=== PATIENT | female | born 1985 | race Caucasian/White ===

== ENCOUNTER 2017-02-24 15:30 | Observation (INO) | payer OTHER ==
[~2017-02-24] VITALS: Ht 157.5 cm; Wt 65.3 kg
[2017-02-24] MEDS ORDERED: PNV1TABL54 PO (15:51)
[2017-02-24 17:43] VITALS: BP 109/62
[2017-02-24 21:45] LABS: BASOPHILS % (AUTO) 0.5 % (0.0-2.0); EOSINOPHILS % (AUTO) 1.6 % (1.0-6.0); HEMATOCRIT 26.6 % (36-46); HEMOGLOBIN 8.5 g/dL (12.0-16.0); LYMPHOCYTES # (AUTO) 2.8 K/uL (1.0-4.8); LYMPHOCYTES % (AUTO) 23.1 % (22.0-44.0); MEAN CORPUSCULAR HGB CONC 32.1 G/dL (31.0-37.0); MEAN CORPUSCULAR VOLUME 90 fL (80-100); MONOCYTES # (AUTO) 0.7 K/uL (0.1-1.0); NEUTROPHILS # (AUTO) 8.3 K/uL (1.8-7.7); NEUTROPHILS % (AUTO) 68.8 % (40.0-70.0); RED BLOOD CELL COUNT(AUTO) 2.94 MIL/uL (4.00-5.20); RED CELL DISTRIBUTION WIDTH 14.6 % (11.5-14.5); WHITE BLOOD COUNT (AUTO) 12.1 K/uL (4.5-11.0)
[2017-02-24 21:55] LABS: PROTHROMBIN TIME 10.2 SEC (9.4-11.6)
[2017-02-24] MEDS ORDERED: RINGERS SOLUTION,LACTATED 1,000 ML IV ONE (22:30)
[2017-02-24] MEDS ORDERED: RINGERS SOLUTION,LACTATED 1,000 ML IV SCH (23:00)
[2017-02-25] MEDS ORDERED: SOD FERRIC GLUC COMPLX/SUCROSE 125 MG in SODIUM CHLORIDE 0.9% 100 ML IV ONE (07:30)
[2017-02-25] MEDS ORDERED: FOLIC ACID 1 MG TABLET PO ONE (09:00)
== END 2017-02-25 10:10 | disposition home or self-care (01) ==
LOC: 4S 15:30
PROVIDERS: ADMIT Obstetrics & Gynecology; ATTEND Obstetrics & Gynecology
DX: O26.893 Other specified pregnancy related conditions, third trimester (principal); R10.2 Pelvic and perineal pain; Z3A.35 35 weeks gestation of pregnancy
CPT/HCPCS: 36415; 59025 ×2; 85025; 85610; 85730; 86850; 86900; 86901; 87081; 96361; 96365; G0378 ×2; J2916; J7050; J7120

== ENCOUNTER 2017-02-26 11:20 | Observation (INO) | payer OTHER ==
[~2017-02-26] VITALS: Ht 157.5 cm; Wt 65.8 kg
[~2017-02-26 11:20] MED LIST: PNV1TABL54 PO
[2017-02-26] MEDS ORDERED: RINGERS SOLUTION,LACTATED 1,000 ML IV ONE (11:30)
[2017-02-26 11:36] VITALS: BP 101/58
[2017-02-26] MEDS ORDERED: SOD FERRIC GLUC COMPLX/SUCROSE 125 MG in SODIUM CHLORIDE 0.9% 100 ML IV ONE (12:00)
[2017-03-05] MEDS ORDERED: FERS325 PO (09:56)
== END 2017-02-26 14:00 | disposition home or self-care (01) ==
LOC: 4S 11:20
PROVIDERS: ADMIT Obstetrics & Gynecology; ATTEND Obstetrics & Gynecology
DX: O99.013 Anemia complicating pregnancy, third trimester (principal); Z3A.38 38 weeks gestation of pregnancy
CPT/HCPCS: 59025; 96365; G0378; J2916; J7050; J7120; 96360

== ENCOUNTER 2017-02-28 09:00 | Observation (INO) | payer OTHER ==
[~2017-02-28] VITALS: Ht 165 cm; Wt 64.4 kg
[2017-02-28] MEDS ORDERED: [UNRECOGNIZED DRUG - CODE] PO (09:25)
[2017-02-28] MEDS ORDERED: SOD FERRIC GLUC COMPLX/SUCROSE 125 MG in SODIUM CHLORIDE 0.9% 100 ML IV ONE (09:30)
[2017-02-28] MEDS ORDERED: RINGERS SOLUTION,LACTATED 500 ML IV ONE (09:45)
[2017-02-28] MEDS ORDERED: RINGERS SOLUTION,LACTATED 1,000 ML IV ONE ×2 (09:47→10:00)
[2017-02-28 11:40] VITALS: BP 103/58
[2017-03-05] MEDS ORDERED: FERS325 PO (09:56)
== END 2017-02-28 12:40 | disposition home or self-care (01) ==
LOC: 4S 09:00
PROVIDERS: ADMIT Obstetrics & Gynecology; ATTEND Obstetrics & Gynecology
DX: O99.013 Anemia complicating pregnancy, third trimester (principal); Z3A.38 38 weeks gestation of pregnancy
CPT/HCPCS: 59025; 96365; G0378; J2916; J7050; J7120

== ENCOUNTER 2017-03-02 09:01 | Observation (INO) | payer OTHER ==
[~2017-03-02] VITALS: Ht 165.1 cm; Wt 64.0 kg
[~2017-03-02 09:01] MED LIST changes: +RINGERS SOLUTION,LACTATED 1,000 ML IV ONE; +[UNRECOGNIZED DRUG - CODE] PO
[2017-03-02] MEDS ORDERED: FERS325 PO (09:05)
[2017-03-02 10:01] LABS: BASOPHILS # (AUTO) 0.04 K/uL (0.00-0.20); BASOPHILS % (AUTO) 0.3 % (0.0-2.0); EOSINOPHILS # (AUTO) 0.24 K/uL (0.00-0.70); EOSINOPHILS % (AUTO) 2.15 % (1.0-6.0); HEMOGLOBIN 9.3 g/dL (12.0-16.0); LYMPHOCYTES # (AUTO) 2.1 K/uL (1.0-4.8); LYMPHOCYTES % (AUTO) 18.4 % (22.0-44.0); MEAN CORPUSCULAR HEMOGLOBIN 30.3 pg (26.0-34.0); MEAN CORPUSCULAR HGB CONC 33.1 G/dL (31.0-37.0); MEAN CORPUSCULAR VOLUME 92 fL (80-100); MONOCYTES # (AUTO) 0.5 K/uL (0.1-1.0); MONOCYTES % (AUTO) 4.7 % (2.0-9.0); NEUTROPHILS # (AUTO) 8.3 K/uL (1.8-7.7); NEUTROPHILS % (AUTO) 74.5 % (40.0-70.0); PLATELET COUNT (AUTO) 181 K/uL (150-450); RED BLOOD CELL COUNT(AUTO) 3.07 MIL/uL (4.00-5.20); WHITE BLOOD COUNT (AUTO) 11.2 K/uL (4.5-11.0)
[2017-03-02] MEDS ORDERED: SOD FERRIC GLUC COMPLX/SUCROSE 125 MG in SODIUM CHLORIDE 0.9% 100 ML IV ONE (11:00)
[2017-03-05] MEDS ORDERED: FERS325 PO (09:56)
== END 2017-03-02 11:35 | disposition home or self-care (01) ==
LOC: 4S 09:01
PROVIDERS: ADMIT Obstetrics & Gynecology; ATTEND Obstetrics & Gynecology
DX: O99.013 Anemia complicating pregnancy, third trimester (principal); Z3A.39 39 weeks gestation of pregnancy
CPT/HCPCS: 36415; 59025; 85025; 96365; G0378; J2916; J7050; 96360

== ENCOUNTER 2017-03-03 05:23 | Inpatient (IN) | payer OTHER ==
[~2017-03-03] VITALS: Ht 157.5 cm; Wt 62.6 kg
[~2017-03-03 05:23] MED LIST changes: +FERR-89 PO
[2017-03-03] MEDS ORDERED: METOCLOPRAMIDE HCL 5 MG/ML 2 ML VIAL IVP ONE (05:30)
[2017-03-03] MEDS ORDERED: CITRIC ACID/SODIUM CITRATE 30 ML SOLUTION UDCUP PO ONE (05:30)
[2017-03-03 06:54] VITALS: BP 106/65
[2017-03-03] MEDS ORDERED: CeFAZolin 2 GM/DEXTROSE 50 ML IV ONE (07:01)
[2017-03-03] MEDS ORDERED: MORPHINE SULFATE/PF 0.5 MG/ML 10 ML AMP ONE (07:02)
[2017-03-03] MEDS ORDERED: FentaNYL CITRATE-PF 100 MCG/2 ML VIAL ONE (07:02)
[2017-03-03] MEDS ORDERED: RINGERS SOLUTION,LACTATED 1,000 ML IV ONE ×2 (07:02→07:45)
[2017-03-03] MEDS ORDERED: NALOXONE HCL 0.4 MG/ML VIAL IVP PRN (08:45)
[2017-03-03] MEDS ORDERED: KETOROLAC TROMETHAMINE 30 MG/ML VIAL IVP PRN (08:45)
[2017-03-03] MEDS ORDERED: NALBUPHINE HCL 10 MG/ML VIAL IVP PRN ×3 (08:45)
[2017-03-03] MEDS ORDERED: ONDANSETRON HCL 4 MG/2 ML VIAL IVP PRN ×2 (08:45)
[2017-03-03] MEDS ORDERED: ACETAMINOPHEN 1000 MG/ISO-OSM 100 ML IV ONE (08:45)
[2017-03-03] MEDS ORDERED: FentaNYL CITRATE-PF 100 MCG/2 ML VIAL IVP PRN ×4 (08:45)
[2017-03-03] MEDS ORDERED: DiphenhydrAMINE HCL 50 MG/ML VIAL IVP PRN ×2 (08:45)
[2017-03-03] MEDS ORDERED: DEXAMETHASONE SOD PHOS 4 MG/ML VIAL IVP PRN (08:45)
[2017-03-03] MEDS ORDERED: ACETAMINOPHEN 1000 MG/ISO-OSM 100 ML IV PRN (08:45)
[2017-03-03] MEDS ORDERED: MEPERIDINE-PF 25 MG/ML SYRINGE IVP PRN (08:45)
[2017-03-03] MEDS ORDERED: ACETAMINOPHEN/CODEINE 300-30 MG TABLET PO PRN ×2 (09:00)
[2017-03-03] MEDS ORDERED: LANOLIN 7 GM OINTMENT TP PRN (09:00)
[2017-03-03] MEDS ORDERED: DEXTROSE 5%-0.45% SODIUM CHL 1,000 ML IV ONE (10:06)
[2017-03-03] MEDS: DEXTROSE 5%-0.45% SODIUM CHL 1,000 ML IV SCH ×4 (10:24→23:37)
[2017-03-03] MEDS ORDERED: OXYGEN THERAPY IH SCH ×4 (20:00)
[2017-03-03] MEDS: MAGNESIUM HYDROXIDE SUSPENSION 30 ML UDCUP PO SCH (21:00)
[2017-03-04] MEDS: IBUPROFEN 800 MG TABLET PO SCH ×4 (05:58→23:49)
[2017-03-04] MEDS: MAGNESIUM HYDROXIDE SUSPENSION 30 ML UDCUP PO SCH ×2 (08:55→21:18)
[2017-03-05] MEDS: IBUPROFEN 800 MG TABLET PO SCH (05:47)
[2017-03-05] MEDS ORDERED: ACET1TAB12 PO (09:52)
[2017-03-05] MEDS ORDERED: IBUP-1547 PO (09:53)
[2017-03-05] MEDS ORDERED: DSS100 PO (09:55)
[2017-03-05] MEDS ORDERED: FERR-89 PO (09:56)
== END 2017-03-05 11:30 | disposition home or self-care (01) | DRG 540 ==
LOC: 4S 05:23 → PREOBSVTOIN 03-16 05:45
PROVIDERS: ADMIT Obstetrics & Gynecology; ATTEND Obstetrics & Gynecology
PROC: 10D00Z1 Extraction of Products of Conception, Low, Open Approach (ICD-10-PCS; principal; 2017-03-03)
PROC: 0UL70ZZ Occlusion of Bilateral Fallopian Tubes, Open Approach (ICD-10-PCS; 2017-03-03)
DX: O34.219 Maternal care for unspecified type scar from previous cesarean delivery (principal); O99.02 Anemia complicating childbirth; Z37.0 Single live birth; Z3A.39 39 weeks gestation of pregnancy; Z30.2 Encounter for sterilization
CPT/HCPCS: 86850; 86900; 86901; 86920; 87081; J0131; J0690; J1885; J2274; J2300; J2405; J2765; J3010; J7120